=== PATIENT | male | born 1955 ===

== ENCOUNTER 2018-12-30 07:41 | Day surgery (SDC) | payer OTHER ==
[~2018-12-30] VITALS: Ht 188 cm; Wt 112.6 kg
[~2018-12-30 07:41] MED LIST: FISH OIL 1,0001 EAC1 PO; Multiple Vitam1 EAC1 PO; NAPR220 PO; STONE FREE; TART CHERRY JUICE
== END 2018-12-30 10:02 | disposition home or self-care (01) ==
LOC: ORSCSDS 07:41
PROVIDERS: Internal Medicine Gastroenterology
PROC: 0DJD8ZZ Inspection of Lower Intestinal Tract, Via Natural or Artificial Opening Endoscopic (ICD-10-PCS; principal; 2018-12-30 09:00)
DX: Z12.11 Encounter for screening for malignant neoplasm of colon (principal); K57.30 Diverticulosis of large intestine without perforation or abscess without bleeding
CPT/HCPCS: J0330; J1980; J2405; J7120

== ENCOUNTER → 2025-05-27 | Outpatient (CLI) | payer MEDICARE, BC ==
[~2025-05-27] MED LIST changes: +Aspir 8181 MG PO; +METFORMIN HCL500 M2 PO
[2025-05-27 16:25] LABS: BASOPHILS ABSOLUTE AUTO 0.06 K/mm3 (0.00-0.23); BASOPHILS PERCENT AUTO 1 % (0-2); EOSINOPHILS ABSOLUTE AUTO 0.14 K/mm3 (0.00-0.68); EOSINOPHILS PERCENT AUTO 2 % (0-6); Hematocrit 49.9 % (37.0-53.0); Hemoglobin 16.5 g/dL (13.5-17.5); IMMATURE GRAN ABSOLUTE AUTO 0.01 K/mm3 (0.00-0.10); IMMATURE GRAN PERCENT AUTO 0 % (0-1); LYMPHOCYTES ABSOLUTE AUTO 2.12 K/mm3 (0.84-5.20); LYMPHOCYTES PERCENT AUTO 36 % (21-46); MONOCYTES ABSOLUTE AUTO 0.44 K/mm3 (0.16-1.47); MONOCYTES PERCENT AUTO 7 % (4-13); Mean Corpuscular HGB Conc 33.1 g/dL (31.5-36.5); Mean Corpuscular Volume 92 fL (80-100); NEUTROPHILS ABSOLUTE AUTO 3.14 K/mm3 (1.96-9.15); NEUTROPHILS PERCENT AUTO 53 % (41-73); NRBC ABSOLUTE 0.00 K/mm3 (0.00-0.02); NRBC Auto 0.0 /100 WBC (0.0-0.2); Platelet Count 223 K/mm3 (150-400); RDW Coefficient Variation 13.2 % (11.7-14.2); RDW Standard Deviation 44.3 fL (35.1-46.3)
[2025-05-27 16:58] LABS: Creatinine, Urine Random 220.0 mg/dL (27.00-270.00)
[2025-05-27 17:01] LABS: Microalb/Creat Ratio UR, Rand 17.864 mg/g (0.000-30.000); Microalbumin, Random Urine 39.3 mg/L (0.000-20.000)
[2025-05-27 17:29] LABS: Very Low Density Lipoprot Chol 29 mg/dL (6-32)
[2025-05-27 17:37] LABS: Alanine Aminotransfer (ALT/SGP 27 U/L (12-78); Albumin, Blood 4.2 g/dL (3.4-5.0); Albumin/Globulin Ratio 1.2 (0.8-1.8); Anion Gap 5 mmol/L (3-11); Aspartate Aminotrans (AST/SGOT 15 U/L (12-37); Bilirubin, Total 1.0 mg/dL (0.1-1.0); Blood Urea Nitrogen 17 mg/dL (8-24); CHOL/HDL RATIO 6.2; CO2, Blood 29 mmol/L (21-32); Calcium, Blood 9.2 mg/dL (8.5-10.1); Chloride, Blood 106 mmol/L (98-108); Cholesterol 271 mg/dL (50-200); Creatinine, Blood 0.99 mg/dL (0.60-1.20); Globulin, Blood 3.5 g/dL (2.2-4.0); Glucose, Blood 158 mg/dL (70-99); HDL Cholesterol 44 mg/dL (>39); LDL/HDL RATIO 4.5; Low Density Lipoprotein Chol 198 mg/dL (0-110); Potassium, Blood 3.9 mmol/L (3.5-5.5); Prostate Specific Antigen 1.110 ng/mL (0.000-4.000); Sodium, Blood 136 mmol/L (136-145); Thyroid Stimulating Hormone 3.950 uIU/mL (0.360-4.800); Total Protein, Blood 7.7 g/dL (6.4-8.2); Triglycerides 146 mg/dL (30-160)
== END | disposition home or self-care (01) ==
LOC: LAB SHORT 15:12 → LAB 15:12
PROVIDERS: Family Medicine
DX: Z12.5 Encounter for screening for malignant neoplasm of prostate (principal); Z79.899 Other long term (current) drug therapy
CPT/HCPCS: 80053; 80061; 82043; 82570; 84443; 85025; G0103